=== PATIENT | female | born 1995 | race Caucasian/White ===

== ENCOUNTER 2020-08-07 15:58 | Observation (INO) | payer SELFPAY ==
--- NOTE | 2020-08-07 15:58 | NUR ---
PATIENT TO ROOM VIA EMS AND PHYSICIAN AT BEDSIDE FOR EVAL
--- NOTE | 2020-08-07 16:30 | NUR ---
dr garcia consulted with poison control.
[2020-08-07] MEDS ORDERED: KLONOPIN0.5 M1 PO (16:37)
--- NOTE | 2020-08-07 16:38 | NUR ---
PATIENT IN [employer]. PARENT AT BEDSIDE.
[2020-08-07 16:57] LABS: HEMATOCRIT 43.6 % (37.0-47.0); HEMOGLOBIN 13.5 g/dl (12.0-16.0); MEAN CORPUSCULAR HGB 35.6 pG CALC (26.0-32.0); NEUT# 1.88 thou/uL (2.00-7.15); RED BLOOD COUNT 3.79 mill/uL (4.20-5.60); RED CELL DISTRI WIDTH 12.3 % (11.5-15.5)
[2020-08-07 17:08] LABS: ALBUMIN 4.6 g/dL (3.2-5.0); ALKALINE PHOSPHATASE 67 u/l (38-126); ANION GAP 15 (6-22 (CALC)); BILIRUBIN, TOTAL 0.7 mg/dL (0.0-1.4); BUN 3 mg/dL (7-17); BUN/CREATININE RATIO 6 (12-20 (CALC)); CARBON DIOXIDE 20 mmol/l (22-30); CHLORIDE 113 mmol/l (95-108); CREATININE 0.6 mg/dL (0.5-1.0); GFR > 60 ML/MIN (>=60 (CALC)); GFR FOR AFR.AMER. > 60 ML/MIN (>=60 (CALC)); LIPASE 49 u/l (23-300); POTASSIUM 3.5 mmol/l (3.5-5.1); SGOT/AST 31 u/l (14-36); SODIUM 144 mmol/l (137-146); TOTAL PROTEIN 7.9 g/dL (6.3-8.2)
--- NOTE | 2020-08-07 17:22 | NUR ---
Tamiko GILBERT AT BEDSIDE.
--- NOTE | 2020-08-07 17:54 | NUR ---
PATIENT AWARE OF PENDING DC TO ICU 4.
[2020-08-07 18:00] LABS: URINE BILIRUBIN - DIPSTICK NEGATIVE (NEGATIVE); URINE BLOOD DIPSTICK SMALL (NEGATIVE); URINE COLOR YELLOW; URINE GLUCOSE - DIPSTICK NEGATIVE (NEGATIVE); URINE KETONE NEGATIVE (NEGATIVE); URINE LEUK ESTERASE NEGATIVE (NEGATIVE); URINE NITRITE - DIPSTICK NEGATIVE (Negative); URINE PH 6.5 (4.5-8.0); URINE PROTEIN - DIPSTICK NEGATIVE (NEG-TRACE); URINE SPECIFIC GRAVITY 1.015; URINE UROBILINOGEN - DIPSTICK 0.2 E.U./dL (0.2)
[2020-08-07 18:01] LABS: URINE SQUAMOUS EPITHELIAL CELL FEW EPI/hpf (0-FEW); URINE WBC 0-2 WBC/hpf (0-5)
--- NOTE | 2020-08-07 18:06 | NUR ---
REPORT IN SBAR FORMAT CALLED TO aura dickerson in icu.
--- NOTE | 2020-08-07 18:20 | NUR ---
PT TO ICU BED 4 VIA ER STRETCHER ACCOMPANIED BY ER NURSE. PT ABLE TO TRANSFER SELF TO BED. PT ORIENTED TO ROOM AND UNIT. CALL LIGHT GIVEN AND INSTRUCTIONS GIVEN. PLACED ON PREDATORY ANIMAL TRAPPER. ACETADOTE BAG #1 INFUSING. WILL CONTINUE TO MONITOR.
--- NOTE | 2020-08-07 18:25 | NUR ---
transferred to ICU VIA STRETCHER. STABLE UPON ARRIVAL.
[2020-08-07 18:30] VITALS: BP 119/77
--- NOTE | 2020-08-07 19:15 | NUR ---
PATIENT LAYS WITH HOB 30 DEGREES. IS ALERT AND ORIENTED X4. ON RA, NO SOB NOTED, O2 SAT GREATER THAN 95%. BP WNL. SB/SR ON TELEMETRY. NURSE ASSESSMENT PERFORMED. ALL ADMISSION QUESTIONS ANSWERED APPROPRIATELY. ONLY COMPLAINT WAS SHE HAS ANXIETY AND NEEDS HER KLONOPIN 1 MG FOR TONIGHT. PATIENT HAS HER MEDICATION BOTTLE, WHICH SHE ALLOWED ME TO COUNT AND WILL BE SENDING TO PHARMACY, COUNT IS #2. IV X2 INTACT. ACETYLCYSTEINE 250 ML BAG INFUSING AT THIS TIME. NOTIFIED OF COVID 19 SWAB PENDING. POC DISCUSSED, PATIENT IS CONCERNED ABOUT DISCHARGE SINCE SHE HAS TO GO TO WORK. NKA. SELF REPOSITIONS. CALL LIGHT WITHIN REACH.
--- NOTE | 2020-08-07 21:07 | NUR ---
CALLED AND SPOKE TO DR CRUZ REGARDING PATIENT REQUESTS HER KLONOPIN DOSE TONIGHT, NEW ORDERS RECEIVED.
--- NOTE | 2020-08-07 21:22 | NUR ---
PATIENT'S MOTHER CALLED HERE FOR PATIENT UPDATES. UPDATES GIVEN. NOTIFIED HER WE WILL CALL HER IF ANY CHANGES.
--- NOTE | 2020-08-07 21:27 | NUR ---
VINNY YAP FROM POISON CONTROL CALLED HERE FOR UPDATES OF PATIENT. LABS, VITAL SIGNS, AND RECOMMENDATION FOR TYELNOL, ALT, AST, PT/INR TO BE DRAWN 2 HRS BEFORE 3RD BAG OF ACETYCYSTEINE IS FINISHED INFUSING.
--- NOTE | 2020-08-07 21:48 | NUR ---
PT ABLE TO SWALLOW MEDICATION. NO ACUTE DISTRESS SHOWN. UP TO BSC, STEADY GAIT. REQEUSTED HOT MEAL, WILL PROVIDE. CALL LIGHT WITHIN REACH.
--- NOTE | 2020-08-08 01:10 | NUR ---
PATIENT'S HR 38 BPM. PATIENT ASYMPTOMATIC. SHE REPORTS SHE IS KNOWN TO HAVE LOW HEART RATE AND LOW BP.
[2020-08-08 05:00] VITALS: BP 100/59
--- NOTE | 2020-08-08 06:45 | NUR ---
RECIEVED REPORT FROM DAMION CUNNINGHAM. ASSUMED PT CARE.
[2020-08-08 07:00] VITALS: BP 103/72
--- NOTE | 2020-08-08 07:45 | NUR ---
PT A&OX4, ABLE TO MAKE NEEDS KNOWN. SB ON TELEMETRY, HR 40. PT DENIES CP, SOB OR DISTRESS AT THIS TIME. RESPIRATIONS EVEN/UNLABORED, SA02 97%RA. LS CLEAR THROUGHOUT. ABDOMEN SOFT, NON-TENDER, BSX4 ACTIVE. LBM 11-20. CALL LIGHT IN REACH. WILL MONITOR.
--- NOTE | 2020-08-08 08:45 | NUR ---
DR. WEBBER AT BEDSIDE FOR ASSESSMENT AND TO DISCUSS PLAN OF CARE. NO NEW ORDERS RECIEVED.
[2020-08-08 09:00] VITALS: BP 108/72
--- NOTE | 2020-08-08 10:00 | NUR ---
PT UP TO BR, STEADY GAIT. VOIDED. BACK TO BED. REMAINS SB ON TELEMETRY, HR 42. CALL LIGHT IN REACH. WILL MONITOR
[2020-08-08 11:09] LABS: INTERNATIONAL NORMALIZED RATIO 1.2 RATIO (0.7-1.3); PROTHROMBIN TIME 11.6 SECONDS (9.0-12.5)
[2020-08-08 11:10] LABS: SGOT/AST 23 u/l (14-36)
[2020-08-08 12:00] VITALS: BP 103/56
--- NOTE | 2020-08-08 12:00 | NUR ---
PT SET UP FOR BATH AT BEDSIDE. PT COMPLETE LINEN CHANGE DONE. PT BRUSHED TEETH AND BATHED SELF. NO DISTRESS NOTED AT THIS TIME.
[2020-08-08 14:00] VITALS: BP 99/56
--- NOTE | 2020-08-08 14:19 | NUR ---
SHARAD FROM POISON CONTROL CALLED FOR AN UPDATE. PT MEDICALLY CLEAR FOR RELEASE. VLADIMIR SANCHEZ AT BEDSIDE FOR ASSESSMENT AND TO DISCUSS PLAN OF CARE. NEW ORDERS RECIEVED.
[2020-08-08] MEDS ORDERED: CLONAZEPAM0.5 M1 PO (14:42)
--- NOTE | 2020-08-08 15:04 | NUR ---
IV site TO LAC AND RFA discontinued, cath intact. No edema , no redness, voices no discomfort.
--- NOTE | 2020-08-08 15:29 | NUR ---
discharge instructions reviewed in great detail with pt; pt admits to understanding; prescription for clonazepam given to pt; Dr Benjamin medical card provided as per request; pt awaiting shrimp picker
--- NOTE | 2020-08-08 16:13 | NUR ---
Discharge instructions given. Patient verbalizes understanding of same. Discharged in stable condition via Wheelchair to Home with family. All belongings sent with pt. PAPER PRESCRIPTION AND WORK RELEASE SENT HOME WITH PT. COPY IN CHART.
== END 2020-08-08 16:13 | disposition home or self-care (01) | DRG 918 ==
LOC: ED 15:58 → ED-I 17:40 → ED 17:52 → ICU 17:53
PROVIDERS: Family Medicine; ADMIT Internal Medicine; ATTEND Internal Medicine
DX: T39.1X1A Poisoning by 4-Aminophenol derivatives, accidental (unintentional), initial encounter (principal); T48.5X1A Poisoning by other anti-common-cold drugs, accidental (unintentional), initial encounter; G43.909 Migraine, unspecified, not intractable, without status migrainosus; Z20.828 Contact with and (suspected) exposure to other viral communicable diseases